=== PATIENT | female | born 1990 | race Caucasian/White ===

== ENCOUNTER → 2019-01-02 | Outpatient (CLI) | payer BC | LOC: LAB 17:46 | DX: Z32.01 Encounter for pregnancy test, result positive (principal) ==

== ENCOUNTER → 2019-04-07 | Outpatient (CLI) | payer BC | LOC: LAB 18:09 | DX: Z11.3 Encounter for screening for infections with a predominantly sexual mode of transmission (principal) ==

== ENCOUNTER 2019-05-07 19:03 | Emergency (ER) | payer OTHER, BC ==
[~2019-05-07] VITALS: Ht 152.4 cm; Wt 79.5 kg
[2019-05-07] MEDS ORDERED: ABILIFY5 MG PO (19:33)
[2019-05-07] MEDS ORDERED: PRILOSEC 20MG20 MG PO (19:33)
[2019-05-07] MEDS ORDERED: ALPRAZOLAM0.5 MG PO (19:34)
[2019-05-07] MEDS ORDERED: PROPRANOLOL HCL40 M2 PO (19:34)
[2019-05-07 19:38] VITALS: BP 122/81
== END 2019-05-07 20:07 | disposition home or self-care (01) ==
LOC: ED 19:03
DX: M25.561 Pain in right knee (principal); M25.562 Pain in left knee; F31.9 Bipolar disorder, unspecified; F20.9 Schizophrenia, unspecified; F17.210 Nicotine dependence, cigarettes, uncomplicated; V47.5XXA Car driver injured in collision with fixed or stationary object in traffic accident, initial encounter; Y92.410 Unspecified street and highway as the place of occurrence of the external cause

== ENCOUNTER 2019-05-24 23:50 | Emergency (ER) | payer BC ==
[~2019-05-24 23:50] MED LIST: ABILIFY5 MG PO; ALPRAZOLAM0.5 MG PO; LATUDA80 MG PO; PRILOSEC 20MG20 MG PO; PROPRANOLOL HCL40 M2 PO
[2019-05-25 00:41] LABS: EOS # 0.2 (0.04-0.40); EOS % 1.4 % (1.0-5.0); HEMATOCRIT 44.8 % (37.0-47.0); HEMOGLOBIN 14.8 g/dL (12.5-16.0); LYMPH# 4.2 (1.50-4.00); MEAN CELL VOLUME 96 fl (78-100); MEAN CORPUSCULAR HEMOGLOBIN 32 pg (27-31); MEAN CORPUSCULAR HGB CONC 33 g/dL (33-37); MONO # 0.8 (0.20-0.80); PLATELET COUNT 366 K/mm3 (130-400); RED BLOOD COUNT 4.67 M/mm3 (4.10-5.30); RED CELL DISTRIBUTION WIDTH 12.6 % (11.5-14.5); WHITE BLOOD COUNT 15.5 K/mm3 (4.8-10.8)
[2019-05-25 00:44] LABS: NEU # 10.2 (1.40-6.50)
[2019-05-25 00:49] LABS: POTASSIUM 3.8 mmol/L (3.5-5.1); SODIUM 141 mmol/L (136-145)
[2019-05-25 00:50] LABS: CALCIUM 10.4 mg/dL (8.3-10.5)
[2019-05-25 00:51] LABS: GLUCOSE 100 mg/dL (65-105)
[2019-05-25 00:52] LABS: CARBON DIOXIDE 24 mmol/L (22-29)
[2019-05-25 00:53] LABS: TOTAL BILIRUBIN 0.4 mg/dL (0.2-1.2)
[2019-05-25 00:55] LABS: ALCOHOL IN-HOUSE < 10 mg/dL (<10)
[2019-05-25 00:56] LABS: AST-SGOT 20 U/L (5-34)
[2019-05-25 00:58] LABS: ALT/SGPT 22 U/L (0-55)
[2019-05-25 01:03] LABS: ACETAMINOPHEN < 1 ug/mL
[2019-05-25 01:22] LABS: URINE COLOR YELLOW
[2019-05-25 01:27] LABS: URINE APPEARANCE CLEAR
[2019-05-25 01:28] LABS: PH-URINE 7.5 (5.0 - 8.0); URINE BILIRUBIN NEGATIVE (NEGATIVE); URINE BLOOD TRACE (NEGATIVE); URINE GLUCOSE NEGATIVE (NEGATIVE); URINE KETONE NEGATIVE (NEGATIVE); URINE LEUKOCYTE ESTERASE NEGATIVE (NEGATIVE); URINE NITRATE NEGATIVE (NEGATIVE); URINE PROTEIN(semi-quant) NEGATIVE (NEGATIVE); URINE UROBILINOGEN NORMAL (NORMAL); URINE WBC 0-1 /hpf (0-3)
[2019-05-25 03:16] VITALS: BP 111/75
== END 2019-05-25 03:16 | disposition home or self-care (01) ==
LOC: ED 23:50
PROVIDERS: Family Medicine; Physician Assistant
DX: R45.851 Suicidal ideations (principal); F31.9 Bipolar disorder, unspecified; F17.210 Nicotine dependence, cigarettes, uncomplicated; Z88.1 Allergy status to other antibiotic agents

== ENCOUNTER 2021-10-01 07:17 | Emergency (ER) | payer MEDICAID ==
[2021-10-01 07:23] VITALS: BP 110/80
[2021-10-01] MEDS ORDERED: OLANZAPINE5 M3 PO (07:25)
[2021-10-01 08:31] LABS: URINE APPEARANCE CLOUDY; URINE BILIRUBIN NEGATIVE (NEGATIVE); URINE BLOOD 250 ery/uL (NEGATIVE); URINE COLOR YELLOW; URINE GLUCOSE NEGATIVE (NEGATIVE); URINE KETONE NEGATIVE (NEGATIVE); URINE LEUKOCYTE ESTERASE 1+ (NEGATIVE); URINE NITRATE NEGATIVE (NEGATIVE); URINE PROTEIN(semi-quant) NEGATIVE (NEGATIVE); URINE UROBILINOGEN NORMAL (NORMAL); URINE WBC 31-50 /hpf (0-3)
[2021-10-01 08:32] LABS: URINE MUCUS PRESENT (NOT PRESENT)
[2021-10-01] MEDS ORDERED: BACTRIM DS TAB1 EACH PO (09:29)
== END 2021-10-01 09:36 | disposition home or self-care (01) ==
LOC: ED 07:17
PROVIDERS: Family Medicine
DX: N39.0 Urinary tract infection, site not specified (principal); Z28.310 Unvaccinated for COVID-19